=== PATIENT | female | born 1955 | race Caucasian/White ===

== ENCOUNTER 2016-08-23 | Inpatient (IN) | payer BC, MEDICARE ==
[~2016-08-23] MED LIST: ABACAVIR300 M1; ACETAMINOPHEN500 M4 PO; ADVIL200 M3 PO; AFINITOR PO; ATIVAN0.5 M1 PO; BENADRYL25 MG PO; CALCIUM 600 +1 EA12 PO; CHLORASEPTIC T1 EACH PO; COLACE100 M1 PO; CYCLOBENZAPRINE10 M1 PO; CYMBALTA30 M1 PO; DELTASONE20 MG PO; DEXAMETHASONE4 M1 PO; DILAUDID2 M1 PO; FISH OIL1 CAP PO; FLAGYL500 M1 PO; FOLIC ACID0.4 MG PO; GRANISETRON HCL PO; GUAIFENESIN ER600 MG PO; HYDROXYCHLOROQ200 M2 PO; LENVIMA18 MG PO; LEXAPRO10 M2 PO; METHOTREXATE2.5 MG PO; MILK OF MAGNESIA PO; MIRALAX17 G2 PO; MORPHINE SULFAT15 MG PO; MUCINEX600 M1 PO; NORVASC5 M2 PO; NUCYNTA ER50 M1 PO; NYSTATIN PO; NYSTATIN100000 UNI SSW; OMEPRAZOLE40 M2 PO; ONDANSETRON HCL8 M1 PO; ONDANSETRON ODT8 M1 PO; OXYCODONE HCL5 M1 PO; OXYCODONE-ACET1 EAC3 PO; OXYGEN INH; PANTOPRAZOLE SO40 M3 PO; PREDNISONE10 M1 PO; PREDNISONE20 MG PO; PREDNISONE5 M1 PO; PROTONIX40 M2 PO; ROXICODONE5 M2 PO; TRANSDERM-SCOP1 EACH TD; TYLENOL325 M2 PO; TYLENOL325 MG PO; VENTOLIN HFA18 G2 PO; VOTRIENT200 M1 PO; WAL-ZYR10 M2 PO; ZANAFLEX4 M3 PO; [UNRECOGNIZED DRUG - REMARK]; [UNRECOGNIZED DRUG - REMARK]; [UNRECOGNIZED DRUG - REMARK]; [UNRECOGNIZED DRUG - REMARK]
[2016-08-23] MEDS ORDERED: OMEPRAZOLE40 M2 PO (08:50)
[2016-08-23] MEDS ORDERED: AFINITOR PO (08:50)
[2016-08-23] MEDS ORDERED: LENVIMA18 MG PO (08:51)
[2016-08-24] MEDS ORDERED: DULCOLAX10 MG PR (13:50)
[2016-08-24] MEDS ORDERED: PREDNISONE10 M1 PO (13:53)
[2016-08-29] MEDS ORDERED: CITRUCEL479 GM (11:25)
== END 2016-08-29 11:59 | DRG 389 ==
DX: K56.60 Unspecified intestinal obstruction (principal); C78.7 Secondary malignant neoplasm of liver and intrahepatic bile duct; C79.70 Secondary malignant neoplasm of unspecified adrenal gland; Z85.528 Personal history of other malignant neoplasm of kidney; Z66 Do not resuscitate; J44.9 Chronic obstructive pulmonary disease, unspecified; Z99.81 Dependence on supplemental oxygen; M06.9 Rheumatoid arthritis, unspecified; R79.89 Other specified abnormal findings of blood chemistry; K21.9 Gastro-esophageal reflux disease without esophagitis; F41.9 Anxiety disorder, unspecified; G89.29 Other chronic pain; I10 Essential (primary) hypertension; Z88.8 Allergy status to other drugs, medicaments and biological substances; Z91.040 Latex allergy status

== ENCOUNTER 2017-01-03 14:14 | Emergency (ER) | payer BC, MEDICARE ==
[~2017-01-03] VITALS: Ht 165.1 cm; Wt 90.9 kg
[~2017-01-03 14:14] MED LIST changes: +CITRUCEL479 GM; +DULCOLAX10 MG PR
[2017-01-03 14:39] LABS: BASO % 0.2 % (0-2); EOS % 0.7 % (0-7); EOSINOPHIL ABSOLUTE COUNT 0.1 tho/cmm (0.0-0.7); HCT-HEMATOCRIT 46.9 % (34.0-49.0); IMMATURE GRANULOCYTES ABSOLUTE 0.05 tho/cmm (0-0.03); IMMATURE GRANULOCYTES PERCENT 0.5 % (0-0.3); LYMPH % 19.2 % (20-45); LYMPH ABSOLUTE COUNT 2.1 tho/cmm (0.8-4.5); MCH (MEAN CORPUSCULAR HGB) 26.5 pg (28.0-32.0); MCV (MEAN CELL VOLUME) 82.9 fl (82.0-96.0); MEAN PLATELET VOLUME 10.3 cmc (9.4-12.4); MONO % 7.6 % (0-12); MONOCYTE ABSOLUTE COUNT 0.8 tho/cmm (0.0-1.2); NEUTROPHIL ABSOLUTE COUNT 7.9 tho/cmm (1.6-8.0); NEUTROPHIL-AUTOMATED 7.9 tho/cmm (1.6-8.0); NEUTROPHILS % 71.8 % (40-80); PLATELET COUNT 244 tho/cmm (150-450); RED BLOOD COUNT 5.66 mil/cmm (4.00-5.20); RED CELL DISTRIBUTION WIDTH 15.3 % (12.4-16.4); WHITE BLOOD COUNT 10.9 tho/cmm (4.0-10.0)
[2017-01-03] MEDS ORDERED: LENVIMA PO (14:46)
[2017-01-03] MEDS ORDERED: ILEVRO1.7 ML OP (14:49)
[2017-01-03] MEDS ORDERED: [UNRECOGNIZED DRUG - OTHER] OP (14:52)
[2017-01-03] MEDS ORDERED: PREDNISOLONE ACE5 M1 OP (14:58)
[2017-01-03] MEDS ORDERED: SILENOR6 M1 PO (15:00)
[2017-01-03 15:01] LABS: ANION GAP 15 mmol/L (0-20); BLOOD UREA NITROGEN 15 mg/dl (6-24); CARBON DIOXIDE-VENOUS 23 mmol/L (22-32); CHLORIDE 104 mmol/l (96-110); CREATININE 1.13 mg/dl (0.50-1.10); GLUCOSE 161 mg/dL (70-110); POTASSIUM 4.1 mmol/L (3.7-5.1); SODIUM 138 mmol/L (135-145); eGFR VALUE FOR BLACK 61 mL/Min
[2017-01-03] MEDS ORDERED: TUMS200 MG CH (15:43)
[2017-01-03] MEDS ORDERED: TURMERIC500 M3 PO (15:46)
== END 2017-01-03 17:23 ==
LOC: EDMED 14:14
PROVIDERS: Emergency Medicine
DX: R07.89 Other chest pain (principal); I10 Essential (primary) hypertension; E78.5 Hyperlipidemia, unspecified; J44.9 Chronic obstructive pulmonary disease, unspecified; F17.200 Nicotine dependence, unspecified, uncomplicated; Z79.899 Other long term (current) drug therapy